=== PATIENT | female | born 1975 ===

== ENCOUNTER 2017-08-10 18:28 | Emergency (ER) | payer OTHER, MEDICAID ==
[~2017-08-10] VITALS: Ht 558.9 cm; Wt 92.8 kg
[2017-08-10] MEDS ORDERED: METH-360 PO (18:58)
[2017-08-10] MEDS ORDERED: NAPR-56 PO (18:59)
[2017-08-10 19:25] VITALS: BP 154/82
== END 2017-08-10 19:26 | disposition home or self-care (01) ==
LOC: ER 18:29
DX: S16.1XXA Strain of muscle, fascia and tendon at neck level, initial encounter (principal); M54.6 Pain in thoracic spine; V87.7XXA Person injured in collision between other specified motor vehicles (traffic), initial encounter; Y93.89 Activity, other specified; Y99.8 Other external cause status; Y92.410 Unspecified street and highway as the place of occurrence of the external cause
CPT/HCPCS: 99283